=== PATIENT | female | born 1950 | race Caucasian/White ===

== ENCOUNTER → 2017-12-15 09:28 | Outpatient (CLI) | payer MEDICARE, BC, SELFPAY ==
[2017-12-15 13:28] LABS: ALT 36 U/L (12-78); AST 29 U/L (15-37); Albumin 4.1 g/dL (3.4-5.0); Alkaline Phosphatase 64 U/L (46-116); Anion Gap 9.1 mmol/L (3-11); BUN 22 mg/dL (7-18); CO2 28.9 mmol/L (21.0-32.0); Chloride 104 mmol/L (98-107); Cholesterol 217 mg/dL (50-200); Glucose 90 mg/dL (70-100); HDL Cholesterol 64 mg/dL (40-60); LDL CHOLESTEROL 150 mg/dL (<100); Potassium 4.2 mmol/L (3.5-5.1); Sodium 142 mmol/L (136-145); Total Protein 7.4 g/dL (6.4-8.2); Triglyceride 77 mg/dL (30-150)
== END ==
DX: E78.5 Hyperlipidemia, unspecified (principal); D12.6 Benign neoplasm of colon, unspecified; R63.8 Other symptoms and signs concerning food and fluid intake
CPT/HCPCS: 36415; 80053; 80061; 83721

== ENCOUNTER → 2017-12-18 03:14 | Outpatient (CLI) | payer MEDICARE, BC, SELFPAY ==
--- NOTE | 2017-12-18 15:01 | DI.REPORT_ITS ---
SYMPTOMS/DIAGNOSIS: SCREENING, Z12.31 BILATERAL SCREENING MAMMOGRAM: Mammograms were interpreted according to the usual protocol including computer analysis with CAD system, tomosynthesis and C view imaging. Comparison is made with exams from 2011 through 2016. The breasts are composed of scattered fibroglandular densities, breast density category B. No suspicious masses or suspicious microcalcifications are seen. There has been no significant change. IMPRESSION: Category 1B, negative mammogram. Routine screening is recommended. [facility] ASSESSMENT OF FINDINGS: Negative. Category 1. Patient will receive a letter notifying them of these results. BI-RADS category B. There are scattered areas of fibroglandular density.
== END ==
DX: Z12.31 Encounter for screening mammogram for malignant neoplasm of breast (principal)
CPT/HCPCS: 77063; 77067

== ENCOUNTER 2018-11-29 01:06 | Outpatient (CLI) | payer MEDICARE, BC, SELFPAY ==
[2018-11-29 11:32] LABS: ALT 27 U/L (12-78); AST 21 U/L (15-37); Alkaline Phosphatase 57 U/L (46-116); Anion Gap 10.4 mmol/L (3-11); BUN 20 mg/dL (7-18); Bilirubin, Total 1.2 mg/dL (0.2-1.0); CO2 27.6 mmol/L (21.0-32.0); CREATININE 0.72 mg/dL (0.55-1.02); Calcium 9.1 mg/dL (8.5-10.1); Calculated LDL 132 mg/dL; Chloride 102 mmol/L (98-107); Cholesterol 209 mg/dL (50-200); Glucose 93 mg/dL (70-100); HDL Cholesterol 56 mg/dL (40-60); Potassium 4.3 mmol/L (3.5-5.1); Sodium 140 mmol/L (136-145); Total Protein 7.2 g/dL (6.4-8.2); Triglyceride 106 mg/dL (30-150)
== END 2018-11-29 01:26 ==
DX: D12.6 Benign neoplasm of colon, unspecified (principal); K21.9 Gastro-esophageal reflux disease without esophagitis; M79.602 Pain in left arm; R63.8 Other symptoms and signs concerning food and fluid intake; E78.5 Hyperlipidemia, unspecified
CPT/HCPCS: 36415; 80053; 80061; 83721

== ENCOUNTER 2019-12-19 09:15 | Outpatient (CLI) | payer MEDICARE, BC, SELFPAY ==
[2019-12-19 12:36] LABS: ALT 43 U/L (14-59); AST 28 U/L (15-37); Albumin 4.1 g/dL (3.4-5.0); Alkaline Phosphatase 52 U/L (46-116); Anion Gap 9.6 mmol/L (3-11); BUN 20 mg/dL (7-18); Bilirubin, Total 1.1 mg/dL (0.2-1.0); CO2 28.4 mmol/L (21.0-32.0); CREATININE 0.76 mg/dL (0.55-1.02); Calcium 9.3 mg/dL (8.5-10.1); Calculated LDL 132 mg/dL (<100); Chloride 104 mmol/L (98-107); Cholesterol 207 mg/dL (<200); Glucose 96 mg/dL (74-106); HDL Cholesterol 54 mg/dL (40-60); Sodium 142 mmol/L (136-145); Total Protein 7.3 g/dL (6.4-8.2); Triglyceride 109 mg/dL (<150)
== END 2019-12-19 09:35 ==
DX: I10 Essential (primary) hypertension (principal)
CPT/HCPCS: 36415; 80053; 80061

== ENCOUNTER 2020-01-04 04:33 | Outpatient (CLI) | payer MEDICARE, BC, SELFPAY ==
--- NOTE | 2020-01-04 11:50 | DI.MAMMO_ITS ---
EXAM: MG MAMMO SCREENING CLINICAL HISTORY: screening, Z12.39 TECHNIQUE: Bilateral full field digital CC and MLO mammographic images were obtained with 3D tomosyn thesis and utilizing computer aided detection (CAD). COMPARISON: Available for comparison. FINDINGS: Masses/Architectural Distortion: There are stable scattered fibroglandular densities. Microcalcifications: No suspicious pleomorphic-type are seen. Skin Thickening/Nipple Retraction: None. IMPRESSION: 1. No significant interval change with no specific features of malignancy noted. 2. Unless there is more urgent need, screening mammography is recommended, as per [employer] guidelines. BI-RADS Category 1 - Negative Breast Density - Category B - Scattered areas of fibroglandular density A negative radiographic report should not delay biopsy if a dominant or clinically suspicious mass is present. Up to ten percent of cancers are not identified on mammography. A negative report may reinforce clinical impression. Adenosis and dense breasts may obscure an underlying neoplasm. False positive reports average 6 to 10%. Patient will receive a letter notifying them of these results.
== END 2020-01-04 04:53 ==
DX: Z12.31 Encounter for screening mammogram for malignant neoplasm of breast (principal); R92.2 Inconclusive mammogram
CPT/HCPCS: 77063; 77067

== ENCOUNTER 2021-03-07 08:10 | Emergency (ER) | payer MEDICARE, BC, SELFPAY ==
[2021-03-07] VITALS (37 sets, daily range): BP systolic 125–162; BP diastolic 56–126; PULSE 70–104; RESP 11–35; TEMP 36.8–37.1; O2SAT 93–98
--- NOTE | 2021-03-07 08:17 | ED.GENADUL_ITS ---
Discharge Plan Discharge Details Primary Care Provider: Marie Bethea ED Provider: Linda Souza Home Meds and New Rx's Prescriptions: No Action Systane Complete 0.6 % drops 1 drp OP DAILY PRNRF: 0 aspirin 81 MG tablet,delayed release (DR/EC) 81 mg PO DAILY RF: 0 ttuyjko-bghmiwxmw-syod 1 EACH tablet 1 ea PO DAILY RF: 0 naproxen sodium 220 MG tablet 220 mg PO DAILY RF: 0 multivitamin 1 EACH capsule 1 ea PO DAILY RF: 0 omega-3 fatty acids-fish oil [Fish Oil] 1 EACH capsule 1 ea PO DAILY RF: 0 red yeast rice 600 MG tablet 1,200 mg PO DAILY RF: 0 glucosamine ric-ikviblzsph-skr 1 EACH tablet 1 ea PO DAILY RF: 0 coenzyme Q10 [Co Q-10] 100 MG capsule 1 cap PO DAILY RF: 0 HPI General Date/Time Provider Initiated Documentation: 03/07/21 08:17 . Related Data Home Medications Medication Instructions Recorded Confirmed aspirin 81 mg PO DAILY tab-cap 08/16/13 10/27/18 drwmpbn-sqcigpjeb-avar 1 ea PO DAILY 08/16/13 10/27/18 glucosamine jlp-njzjrlxwzd-nhp 1 ea PO DAILY 08/16/13 10/27/18 multivitamin 1 ea PO DAILY 08/16/13 10/27/18 naproxen sodium 220 mg PO DAILY 08/16/13 10/27/18 omega-3 fatty acids-fish oil [Fish 1 ea PO DAILY 08/16/13 10/27/18 Oil] red yeast rice 1,200 mg PO DAILY 08/16/13 10/27/18 coenzyme Q10 [Co Q-10] 1 cap PO DAILY 08/17/13 10/27/18 propylene glycol 0.6 % eye drops 1 drp OP DAILY PRN 12/19/19 Allergies Allergy/AdvReac Type Severity Reaction Status Date / Time No Known Allergies Allergy Verified 12/19/19 08:02 FOR[facility]LY [facility], [facility] Medical History Gastroesophageal reflux disease without esophagitis (12/15/17) Pain in anterior left upper extremity (12/15/17) Tubular adenoma of colon (02/27/16) White coat hypertension White coat syndrome with hypertension (08/17/13) Surgical History Arthroscopy, Shoulder (~2002) RIGHT Colonoscopy - IV Sedation (02/27/16) Status post arthroscopy of shoulder Family History (Updated 12/19/19 @ 16:33 by Emily Castillo) Father , 82 's Essential hypertension Stroke Diabetes Sister Diabetes Grandmother Stroke Social History (Updated 12/19/19 @ 16:32 by Emily Castillo) Smoking/Tobacco Use Status: Never Smoking risk assessment performed?: Yes Alcohol Intake: never Drug use: Never Counseling given: No Counseling provided: none Caregiver/Support person: No Household members: spouse Housing: house Do you think of yourself as: straight/heterosexual Current gender identity: female What is your relationship status?: How often do you talk on the phone with friends or family?: three or more times per week How often do you get together with friends or relatives?: three or more times per week How often do you attend anabaptism or rastafari services?: 4 or more times per year Do you belong to any clubs or organized social groups?: no Panel score (0-1 are the most socially isolated patients): 3 What type of physical activity do you participate in: walking Duration: < 15 minutes/day Seatbelt use: always Helmet use: Yes Helmet use: always
--- NOTE | 2021-03-07 08:45 | DI.RAD_ITS ---
Exam(s) XR PORTABLE CHEST AP EXAM: XR PORTABLE CHEST AP CLINICAL HISTORY: shortness of breath, covid +. TECHNIQUE: 2D digital imaging was performed. COMPARISON: CR CHEST 2 VIEWS PA,LAT from 05/10/2008 FINDINGS: Heart size is upper normal. The mediastinum is not widened. Lungs are clear. No infiltrates nor obvious pleural effusions. IMPRESSION: No acute pulmonary findings on this single AP portable view of the chest. DATA REPOSITORY: RADIATION DOSE DELIVERED: All CT scans at this facility use at least one of these dose optimization techniques: automated exposure control; mA and/or kV adjustment per patient size (includes targeted e xams where dose is matched to clinical indication); or iterative reconstruction.
--- NOTE | 2021-03-07 08:45 | RT.EKG_ITS ---
APPROVED REPORT Exam: Resting ECG Reason for Exam: shortness of breath Patient Location: E HR:86 bpm ECG Measurements Heart Rate 86 AXIS DE 169 P 78 QRSd 83 QRS 26 QT 362 T 32 QTc 434 Conclusion Sinus rhythm...normal P axis, V-rate 60- 99 Probable left atrial enlargement...P >50mS, <-0.10mV V1
--- NOTE | 2021-03-07 08:59 | NUR.NOTE ---
Nursing Note: [facility], Teresa, stated that the patient was tested at [facility] on Mar.04 and was positive. Ange Pleitez
[2021-03-07 10:06] LABS: Abs Immature Grans 0.02 10^3/uL (0.0-0.06); Absolute Basophil Count 0.02 10^3/uL (0.0-0.2); Absolute Lymphocyte Count 1.19 10^3/uL (1.2-3.4); Absolute Monocyte Count 1.81 10^3/uL (0.1-0.8); Absolute Neutrophil Count 1.43 10^3/uL (1.2-6.7); Basophils % 0.4; HCT 46.4 % (36.0-46.0); HGB 15.6 g/dL (11.2-15.7); Immature Grans % 0.4; Lymphocytes % 26.6; MCH 31.4 pg (27.0-33.0); MCHC 33.6 % (32.0-36.0); MCV 93.4 fL (80-95); Monocytes % 40.5; Neutrophils % 32.1; Nucleated RBC 0 %; Platelet Count 193 10^3/uL (130-400); RBC 4.97 10^6/uL (3.93-5.22); RDW-SD 41.2 fL; WBC 4.47 10^3/uL (4.4-10.8)
[2021-03-07 10:24] LABS: Diff Comment Diff Reviewed; RBC Morphology Normal
[2021-03-07 10:26] LABS: ALT 38 U/L (14-59); AST 32 U/L (15-37); Albumin 3.7 g/dL (3.4-5.0); Alkaline Phosphatase 60 U/L (46-116); Anion Gap 6.4 mmol/L (3-11); BUN 12 mg/dL (7-18); Bilirubin, Total 0.7 mg/dL (0.2-1.0); CO2 30.6 mmol/L (21.0-32.0); CREATININE 0.8 mg/dL (0.55-1.02); Calcium 9.1 mg/dL (8.5-10.1); Chloride 101 mmol/L (98-107); Glucose 100 mg/dL (74-106); NT-proBNP 28 pg/mL (<300); Potassium 3.6 mmol/L (3.5-5.1); Sodium 138 mmol/L (136-145); Total Protein 7.7 g/dL (6.4-8.2)
[2021-03-07 10:29] LABS: Troponin I < 0.05 ng/mL (<0.06)
--- NOTE | 2021-03-07 10:35 | ED.GENADUL_ITS ---
Discharge Plan Disposition Patient Disposition: HOME Condition: Stable Discharge Details Clinical Impression: COVID-19 Primary Care Provider: Marie Bethea ED Provider: Niru Carver Home Meds and New Rx's Prescriptions: Continued Systane Complete 0.6 % drops 1 drp OP DAILY PRNRF: 0 aspirin 81 MG tablet,delayed release (DR/EC) 81 mg PO DAILY RF: 0 cxqjteo-sgbrwaxds-ckdb 1 EACH tablet 1 ea PO DAILY RF: 0 naproxen sodium 220 MG tablet 220 mg PO DAILY RF: 0 multivitamin 1 EACH capsule 1 ea PO DAILY RF: 0 omega-3 fatty acids-fish oil [Fish Oil] 1 EACH capsule 1 ea PO DAILY RF: 0 red yeast rice 600 MG tablet 1,200 mg PO DAILY RF: 0 glucosamine eco-zumtfxytir-qpb 1 EACH tablet 1 ea PO DAILY RF: 0 coenzyme Q10 [Co Q-10] 100 MG capsule 1 cap PO DAILY RF: 0 Discharge Instructions Instructions: Viral Syndrome (ED) Additional Instructions: Stay hydrated with regular meals Continue to isolate Ibuprofen and Tylenol as needed for discomfort Use your Pulsoxymeter, if your oxygen dips below 90% you should return to the emergency room for reassessment When you higher pulse oximeterfor several minutes as sometimes they can take a while to acclimate You received monoclonal antibody infusion, if you begin to have any signs or symptoms of reaction, please return for reassessment and take Benadryl 25 to 50 mg to start Your lab tests look great today we do not have any evidence of pneumonia on your x-ray Referrals: Marie Bethea, [facility] [Primary Care Provider] - Discharge Data Discharge Date/Time-TO BE ENTERED AT DEPARTURE: 03/07/21 11:45 Medical Decision Making Patient appears well, her ambulatory saturations are to limit 95% on room air Given Pulsoximeter, minute given monoclonal antibody, diagnostic labs reassuring We discussed risk factors associated with monoclonal antibody administration and patient Chest x-ray no infiltrate, this patient is quite stable for discharge home, she instructed heavy demeanor and her is available. There are She given very low threshold to return should she have new or worsening complaints at this time she is discharged home in stable condition with stable vitals Medical Records Medical records reviewed: Yes I reviewed the patient's medical records. Lab Data Lab results reviewed: Yes I reviewed the patient's lab results. HPI General Mode of arrival: ambulatory . Date/Time Provider Initiated Documentation: 03/07/21 08:17 . Limitations to Documentation: no limitations . Information obtained by: patient . HPI Narrative: This very pleasant 70-year-old female with recent diagnosis of COVID-19 on Thursday, presents with reports of dyspnea for the past several days. Denies any chest pain associated. Denies any nausea or vomiting. Denies any fever or chills. Was exposed to colostrum. Denies history of asthma or COPD. Does not smoke tobacco. Fully vaccinated for COVID-19 reportedly. Denies any calf pain or swelling, recent flights, surgeries, long drives. States her symptoms are gradual, otherwise she is feeling well. She states that she is quite anxious because her sister of COVID-19 although she is a jail and unsure as to whether or not she is fully vaccinated at this time. Patient states she feels as though she get around safely at home. Denies prior history of coagulopathy. Related Data Home Medications Medication Instructions Recorded Confirmed aspirin 81 mg PO DAILY tab-cap 08/16/13 03/07/21 gafulxy-adpbysmkg-praq 1 ea PO DAILY 08/16/13 03/07/21 glucosamine meu-khgjrdvuoo-kur 1 ea PO DAILY 08/16/13 03/07/21 multivitamin 1 ea PO DAILY 08/16/13 03/07/21 naproxen sodium 220 mg PO DAILY 08/16/13 03/07/21 omega-3 fatty acids-fish oil [Fish 1 ea PO DAILY 08/16/13 03/07/21 Oil] red yeast rice 1,200 mg PO DAILY 08/16/13 03/07/21 coenzyme Q10 [Co Q-10] 1 cap PO DAILY 08/17/13 03/07/21 propylene glycol 0.6 % eye drops 1 drp OP DAILY PRN 12/19/19 03/07/21 Allergies Allergy/AdvReac Type Severity Reaction Status Date / Time No Known Allergies Allergy Verified 03/07/21 08:26 General Stated Complaint: SOB CORNELIO: 3 Review of Systems All systems reviewed & are unremarkable except as noted in HPI and below FOR[facility]LY [facility] Medical History (Updated 03/07/21 @ 10:37 by ROGER Dickens) Gastroesophageal reflux disease without esophagitis (12/15/17) Pain in anterior left upper extremity (12/15/17) Tubular adenoma of colon (02/27/16) White coat hypertension White coat syndrome with hypertension (08/17/13) Surgical History Arthroscopy, Shoulder (~2002) RIGHT Colonoscopy - IV Sedation (02/27/16) Status post arthroscopy of shoulder Family History (Updated 12/19/19 @ 16:33 by Emily Castillo) Father , 82 's Essential hypertension Stroke Diabetes Sister Diabetes Grandmother Stroke Social History (Updated 12/19/19 @ 16:32 by Emily Castillo) Smoking/Tobacco Use Status: Never Smoking risk assessment performed?: Yes Alcohol Intake: never Drug use: Never Counseling given: No Counseling provided: none Caregiver/Support person: No Household members: spouse Housing: house Do you think of yourself as: straight/heterosexual Current gender identity: female What is your relationship status?: How often do you talk on the phone with friends or family?: three or more times per week How often do you get together with friends or relatives?: three or more times per week How often do you attend restorationism or holiness services?: 4 or more times per year Do you belong to any clubs or organized social groups?: no Panel score (0-1 are the most socially isolated patients): 3 What type of physical activity do you participate in: walking Duration: < 15 minutes/day Seatbelt use: always Helmet use: Yes Helmet use: always Exam Const General: cooperative, comfortable and no acute distress HENMT Mouth: oral mucosae normal Eyes Pupils: PERRL Resp Effort & Inspection: normal respiratory effort Auscultation: clear to auscultation bilaterally Cardio Rate: regular rate Rhythm: regular rhythm GI Other: Nontender Skin General skin exam: no rashes or lesions noted Neuro General: patient alert and patient oriented x3 Psych Appearance: grossly normal Course Vital Signs Vital signs: Vital Signs Temperature 37.1 C 03/07/21 08:21 Pulse 88 03/07/21 08:21 Respiratory Rate 16 03/07/21 08:21 Blood Pressure 159/90 H 03/07/21 08:21 Pulse Oximetry 96 03/07/21 08:21 Temperature 36.8 C 03/07/21 10:07 Temperature Source Skin 03/07/21 10:07 Pulse 84 03/07/21 10:31 Pulse 80 03/07/21 10:31 Respiratory Rate 23 03/07/21 10:31 Respiratory Effort 03/07/21 10:15 Respiratory Depth Normal 03/07/21 10:15 Respiratory Pattern Normal 03/07/21 10:15 Blood Pressure 160/98 H 03/07/21 10:31 Blood Pressure Mean 109 03/07/21 10:31 Blood Pressure Position Sitting 03/07/21 10:07 Pulse Oximetry 96 03/07/21 10:31 Oxygen Delivery Method Room Air 03/07/21 10:07 Oxygen Flow Rate 0 03/07/21 10:07 Pain Level 0 03/07/21 10:07 Lab/Test Results Lab/Test Results: Laboratory Tests Range/Units 03/07/21 03/07/21 09:50 09:50 WBC (4.4-10.8) 10^3/uL 4.47 RBC (3.93-5.22) 10^6/uL 4.97 Hgb (11.2-15.7) g/dL 15.6 Hct (36.0-46.0) % 46.4 H MCV (80-95) fL 93.4 MCH (27.0-33.0) pg 31.4 MCHC (32.0-36.0) % 33.6 RDW (11.7-14.6) % 12.0 Plt Count (130-400) 10^3/uL 193 MPV (8.0-11.0) fL 10.0 Immature Gran % 0.4 Neutrophils % 32.1 Lymphocytes % 26.6 Monocytes % 40.5 Eosinophils % 0.0 Basophils % 0.4 Nucleated RBC % % 0 Absolute Neutrophils (1.2-6.7) 10^3/uL 1.43 Absolute Lymphocytes (1.2-3.4) 10^3/uL 1.19 L Absolute Monocytes (0.1-0.8) 10^3/uL 1.81 H Absolute Eosinophils (0.0-0.7) 10^3/uL 0.00 Absolute Basophils (0.0-0.2) 10^3/uL 0.02 RBC Morphology Normal Sodium (136-145) mmol/L 138 Potassium (3.5-5.1) mmol/L 3.6 Chloride (98-107) mmol/L 101 Carbon Dioxide (21.0-32.0) mmol/L 30.6 Anion Gap (3-11) mmol/L 6.4 BUN (7-18) mg/dL 12 Creatinine (0.55-1.02) mg/dL 0.8 Estimated GFR/1.73 m2 (mL/min/1.73m2) >= 60.00 Glucose (74-106) mg/dL 100 Calcium (8.5-10.1) mg/dL 9.1 Total Bilirubin (0.2-1.0) mg/dL 0.7 AST (15-37) U/L 32 ALT (14-59) U/L 38 Alkaline Phosphatase (46-116) U/L 60 Troponin I (<0.06) ng/mL < 0.05 NT-Pro-B Natriuret Pep (<300) pg/mL 28 Total Protein (6.4-8.2) g/dL 7.7 Albumin (3.4-5.0) g/dL 3.7
== END 2021-03-07 11:45 | disposition home or self-care (01) ==
PROVIDERS: Emergency Provider Physician Assistant
DX: U07.1 COVID-19 (principal); R06.02 Shortness of breath
CPT/HCPCS: 36415; 80053; 93005; 96365; 99284; 71045; 83880; 84484; 85025; 93010

== ENCOUNTER 2021-04-26 10:53 | Emergency (ER) | payer MEDICARE, BC, SELFPAY ==
[2021-04-26 10:57] VITALS: BP 158/88; PULSE 81; RESP 18; TEMP 36.4; O2SAT 97
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
--- NOTE | 2021-04-26 11:11 | W.ED.GENAD ---
Discharge Plan Disposition Patient Disposition: HOME Condition: Stable Discharge Details Clinical Impression: Acute pain of right knee, Injury of medial collateral ligament (MCL) of knee Primary Care Provider: Marie Bethea ED Provider: Meredith Hart Home Meds and New Rx's Prescriptions: Continued Systane Complete 0.6 % drops 1 drp OP DAILY PRNRF: 0 aspirin 81 MG tablet,delayed release (DR/EC) 81 mg PO DAILY RF: 0 ptbvehm-czkchznyf-hbaf 1 EACH tablet 1 ea PO DAILY RF: 0 naproxen sodium 220 MG tablet 220 mg PO DAILY RF: 0 multivitamin 1 EACH capsule 1 ea PO DAILY RF: 0 omega-3 fatty acids-fish oil [Fish Oil] 1 EACH capsule 1 ea PO DAILY RF: 0 red yeast rice 600 MG tablet 1,200 mg PO DAILY RF: 0 glucosamine iyj-qptcwaozjk-[id number] 1 EACH tablet 1 ea PO DAILY RF: 0 coenzyme Q10 [Co Q-10] 100 MG capsule 1 cap PO DAILY RF: 0 Discharge Instructions Instructions: Swollen Knee Joint (ED), Knee Pain (ED) Additional Instructions: Your imaging is reassuring here today. Please encourage rest, ice, elevation. Tylenol and ibuprofen as needed for discomfort. You are having difficulty with ambulation, please continue with the knee immobilizer and crutches. Please take great care to not slip while using the crutches and try and stay inside as much as possible. You may take the brace off when you are not ambulating and work on her flexion and extension to help prevent limited range of motion. I have referred you to orthopedics. Please call Thursday morning to schedule appointment, number listed below. If you develop increased pain, fever/chills, or other new/worsening symptom please seek care urgentlyonce again. Referrals: Marie Bethea NP [Primary Care Provider] - Braydon Martines MD [ [facility] STAFF PHYSICIAN] - Discharge Data Discharge Date/Time-TO BE ENTERED AT DEPARTURE: 04/26/21 16:00 Medical Decision Making Patient is a pleasant 70-year-old female presenting today, via EMS, with chief complaint of right knee pain. She reports the pain began initially in over she suffered a rotational injury going down the stairs. States that this happened a few times throughout the course the day and that she has some medial joint line tenderness. Since then, has been having chronic pain, again particularly with rotational events. States that she worked with physical therapy yesterday for this issue and that last night she suffered another event COVID increased pain. States the pain is now so severe she having difficulty with weightbearing. Again, this came on worse after rotational event going up the stairs and taking a corner. Pain continues to feel on the medial aspect. Patient not been seen by her primary care, has not had any imaging as of yet. She denies any fevers or chills. No direct fall on the knee. Denies any numbness or tingling. On exam, patient appears nontoxic. Intact distal pulses. Sensation is intact. Full range of motion at the ankle. Full range of motion of the knee. Ligamentously intact with varus and valgus stress testing as well as anterior posterior drawer testing. However, she does express a large amount of discomfort and does have guarding with valgus stress test. She is tender over the MCL. Negative Sonia's exam. No effusion. No erythema or warmth. No trauma or evidence on exam to suggest knee dislocation. Exam and history is most concerning for MCL sprain. Her exam was slightly limited secondary to guarding as far as instability of this ligament. She had a multitude of injuries, will obtain x-ray to evaluate for any potential bony pathology. X-ray reviewed by myself, I do not know any significant bony abnormalities. The medial joint line might be slightly narrowed compared to the lateral aspect but no evidence to suggest fracture. Discussed these findings with the patient. She has received Tylenol and ibuprofen for discomfort. She has no pain when she is at rest. We will fit with a hinged knee brace and try ambulating patient. Patient attempted to ambulate with a hinged knee brace and was not able to. Been attempted with knee immobilizer and still had the same difficulty as patient was not able to tolerate any type of weightbearing activity. Concern for potential bony abnormality that may not have been picked up on the x-ray based on the severity of discomfort and difficulty with ambulation and weightbearing. We will move forward with a CT for further evaluation. FINDINGS: Bones/joints: There is a small joint effusion. Minimal DJD is present with tiny osteophytes on the patella, medial femoral condyle and tibial plateau. No fracture or other acute bony abnormalities are seen. Soft tissues: Normal. IMPRESSION: 1. Small joint effusion. 2. Mild DJD. 3. No acute bony abnormality. Discussed these findings with patient. Again, unclear was causing the severity of her discomfort. Her exam is most consistent with MCL injury. We will continue with a knee immobilizer to help with pain and start on crutches. I am very hesitant regarding the crutches based on the weather. However, she really struggled with the walker. She will stay inside as much as possible and ensure that she has been helper get from the house to the car when needed. Encourage rest, ice, elevation. Tylenol and ibuprofen as needed for discomfort. Again, the patient did not have any pain when at rest then hesitant to give her any stronger pain medication as this will likely sedate her when she is at rest. Return precautions were discussed. All of her questions and concerns were addressed and she is in agreement this plan. HPI General Mode of arrival: wheelchair. Date/Time Provider Initiated Documentation: 04/26/21 10:54. Limitations to Documentation: no limitations. Information obtained by: patient, family () and RN notes reviewed. History of Present Illness 70 year old F presents to the emergency department with the chief complaint of rightknee pain, described as severe, Quality is described as aching, and is localized to the right and lower extremity. Patient reports no radiation. Patient started experiencing this month(s) (spike in pain last night and today) and it has been constant. Immobilization improves symptom(s), Movement worsens symptoms . Patient notes no other symptoms.. Patient did receive the following treatments prior to arrival, none Related Data Home Medications Medication Instructions Recorded Confirmed aspirin 81 mg PO DAILY tab-cap 08/16/13 04/26/21 empmgau-mmkihmjhp-ynfp 1 ea PO DAILY 08/16/13 04/26/21 glucosamine pdy-zfkdtyddix-nss 1 ea PO DAILY 08/16/13 04/26/21 multivitamin 1 ea PO DAILY 08/16/13 04/26/21 naproxen sodium 220 mg PO DAILY 08/16/13 04/26/21 omega-3 fatty acids-fish oil [Fish 1 ea PO DAILY 08/16/13 04/26/21 Oil] red yeast rice 1,200 mg PO DAILY 08/16/13 04/26/21 coenzyme Q10 [Co Q-10] 1 cap PO DAILY 08/17/13 04/26/21 propylene glycol 0.6 % eye drops 1 drp OP DAILY PRN 12/19/19 04/26/21 Allergies Allergy/AdvReac Type Severity Reaction Status Date / Time No Known Allergies Allergy Verified 04/26/21 11:01 General Stated Complaint: Orthopedic CORNELIO: 4 Review of Systems Constitutional Constitutional: Reports as per HPI, Denies chills, Denies fever(s), Denies headache(s) and Denies weakness ENT Ears, Nose, Mouth, and Throat: Denies headache(s) Cardiovascular Cardiovascular: Reports as per HPI Respiratory Respiratory: Reports as per HPI and Denies cough Musculoskeletal Musculoskeletal: Reports as per HPI and Denies tingling Integumentary/Breasts Skin/Breast: Reports as per HPI, Denies rash and Denies wounds Neurologic Neurologic: Reports as per HPI, Denies headache(s), Denies tingling, Denies paresthesias and Denies weakness PFSH All Active Problems (Updated 04/26/21 @ 15:27 by ROGER Sauceda) COVID-19 (Acute) Acute pain of right knee (Acute) Injury of medial collateral ligament (MCL) of knee (Acute) Status post arthroscopy of shoulder (Chronic) Gastroesophageal reflux disease without esophagitis (Chronic 12/15/17) Pain in anterior left upper extremity (Chronic 12/15/17) Tubular adenoma of colon (Acute 02/27/16) White coat syndrome with hypertension (Acute 08/17/13) Medical History (Updated 04/26/21 @ 15:27 by ROGER Sauceda) White coat hypertension Surgical History Arthroscopy, Shoulder (~2002) RIGHT Colonoscopy - IV Sedation (02/27/16) Family History (Updated 12/19/19 @ 16:33 by Emily Castillo) Father , 82 's Essential hypertension Stroke Diabetes Sister Diabetes Grandmother Stroke Social History (Updated 12/19/19 @ 16:32 by Emily Castillo) Smoking/Tobacco Use Status: Never Smoking risk assessment performed?: Yes Alcohol Intake: never Drug use: Never Substance use type: does not use Counseling given: No Counseling provided: none Caregiver/Support person: No Household members: spouse Housing: house Do you think of yourself as: straight/heterosexual Current gender identity: female What is your relationship status?: How often do you talk on the phone with friends or family?: three or more times per week How often do you get together with friends or relatives?: three or more times per week How often do you attend jehovah's witness or caodaism services?: 4 or more times per year Do you belong to any clubs or organized social groups?: no Panel score (0-1 are the most socially isolated patients): 3 What type of physical activity do you participate in: walking Duration: < 15 minutes/day Seatbelt use: always Helmet use: Yes Helmet use: always Do you feel safe at home: Yes Do you feel safe in your relationship?: Yes Exam Const General: cooperative, healthy appearing, comfortable, no acute distress, well developed and well groomed Nutritional Appearance: average body habitus and well nourished Orientation: alert and awake Resp Effort & Inspection: normal respiratory effort, able to speak in complete sentences and no respiratory distress Cardio Rate: regular rate Rhythm: regular rhythm Skin General skin exam: no rashes or lesions noted Lesions: no lesions Rashes: no rashes Trauma: no lacerations or abrasions Neuro General: patient alert and patient awake Cognition: normal cognition Speech: speech normal Gait: gait abnormal (unable to bear weight) Motor: muscle tone normal throughout Sensory Exam: no sensory deficits noted Extrem Right lower extremity: normal to inspection, full ROM, normal capillary refill, no joint enlargement, knee Details: normal to inspection, tenderness Location: of the medial joint line (along length of MCL), normal ROM, knee ligament exam normal Details: anterior drawer test normal, posterior drawer test normal and varus stress test normal; valgus stress test abnormal (guarding and pain with this test) and no pain with axial loading and Sonia's Test Details: negative medially and laterally; no swelling, no lacerations, no ecchymosis, no deformity and no unusual warmth, lower leg Details: normal to inspection and no edema; no tenderness and no palpable cords, ankle Details: normal to inspection and normal ROM; no tenderness and foot Details: normal capillary refill and vascular exam Details: dorsalis pedis pulse present and posterior tibial pulse present Psych Appearance: grossly normal and well kempt Mental Status: mental status grossly normal Speech and Movement: speech and movement normal Course Vital Signs Vital signs: Vital Signs Temperature 36.4 C L 04/26/21 10:57 Pulse 81 04/26/21 10:57 Respiratory Rate 18 04/26/21 10:57 Blood Pressure 158/88 H 04/26/21 10:57 Pulse Oximetry 97 04/26/21 10:57 Temperature 36.4 C L 04/26/21 10:57 Pulse 81 04/26/21 10:57 Respiratory Rate 18 04/26/21 10:57 Respiratory Effort Non-Labored 04/26/21 11:02 Blood Pressure 158/88 H 04/26/21 10:57 Blood Pressure Position Sitting 04/26/21 10:57 Pulse Oximetry 97 04/26/21 10:57 Oxygen Delivery Method Room Air 04/26/21 10:57 Oxygen Flow Rate 0 04/26/21 10:57
[2021-04-26] MEDS: Acetaminophen 325 MG TAB 650 MG PO (11:24)
[2021-04-26] MEDS: Ibuprofen 600 MG TAB PO (11:24)
--- NOTE | 2021-04-26 12:43 | DI.VRAD_ITS ---
PROCEDURE INFORMATION: Exam: XR Left Knee Exam date and time: 04/26/2021 11:13 AM Age: 70 years old Clinical indication: Other: Right knee pain, medial worse after rotational jaida TECHNIQUE: Imaging protocol: XR Left knee. Views: 4 or more views. COMPARISON: No relevant prior studies available. FINDINGS: Bones/joints: No fracture or other acute abnormalities are seen. Mild degenerative changes are present with small osteophytes. Soft tissues: Normal. IMPRESSION: Mild DJD. No acute abnormality. Dictated and Authenticated by: Georgi Dixon MD. Ordering:DEEJAY Harper MD
--- NOTE | 2021-04-26 13:00 | DI.CT_ITS ---
Exam(s) CT LOWER EXTREMITY RT WO EXAM: CT LOWER EXTREMITY RT WO CLINICAL HISTORY: medial knee pain, unable to weight bear with brace. TECHNIQUE: Imaging Protocol: Axial computed tomography images with coronal and sagittal reformatted images were created and reviewed. CONTRAST MATERIAL: Intravenous: Omnipaque 350 Contrast volume:structured data in ml Contrast route:I V - Oral: yes / no COMPARISON: CR,XR XR KNEE RT 4V AP,LAT,COSTA,PAT from 04/26/2021 CR,XR XR KNEE RT 4V AP,LAT,COSTA,PAT from 04/26/2021 FINDINGS: Effusion: There is a small joint effusion. Marrow: No acute fracture lines evident. Tibial plateau and tibial spines are intact. Mild degenera tive changes evident in the medial and patellofemoral compartments. No fractures in the fibular head and neck. IMPRESSION: No fractures evident. Mild degenerative changes. Small joint effusion. If clinically indicated follow-up MRI can be performed for added sensitivity a nd specificity. RADIATION DOSE DELIVERED: 230.82mGy.cm Total DLP DATA REPOSITORY: All CT scans at this facility are submitted to the National Radiology Data Registry (NRDR) Dose Index Registry (DIR) with the [employer] ([employer]). RADIATION OPTIMIZATION: All CT scans at this facility use at least one of these dose optimization te chniques: automated exposure control; mA and/or kV adjustment per patient size (includes targeted exa ms where dose is matched to clinical indication); or iterative reconstruction.
--- NOTE | 2021-04-26 14:34 | DI.VRAD_ITS ---
PROCEDURE INFORMATION: Exam: CT Right Lower Extremity Without Contrast, Knee Exam date and time: 04/26/2021 1:04 PM Age: 70 years old Clinical indication: Other: Medial knee pain, unable to weight bear with brace TECHNIQUE: Imaging protocol: CT of the Right lower extremity without contrast was performed. Exam focused on the knee. Radiation optimization: All CT scans at this facility use at least one of these dose optimization techniques: automated exposure control; mA and/or kV adjustment per patient size (includes targeted exams where dose is matched to clinical indication); or iterative reconstruction. COMPARISON: CR XR KNEE RT 4V AP,LAT,COSTA,PAT 04/26/2021 11:39 AM FINDINGS: Bones/joints: There is a small joint effusion. Minimal DJD is present with tiny osteophytes on the patella, medial femoral condyle and tibial plateau. No fracture or other acute bony abnormalities are seen. Soft tissues: Normal. IMPRESSION: 1. Small joint effusion. 2. Mild DJD. 3. No acute bony abnormality. Dictated and Authenticated by: Georgi Dixon MD. Ordering:DEEJAY Harper MD
== END 2021-04-26 16:00 | disposition home or self-care (01) ==
PROVIDERS: Emergency Provider Physician Assistant
DX: S89.82XA Other specified injuries of left lower leg, initial encounter (principal); X58.XXXA Exposure to other specified factors, initial encounter; M25.562 Pain in left knee; M25.462 Effusion, left knee
CPT/HCPCS: 29505; 99285; 73564; 73700; 99284

== ENCOUNTER 2021-05-16 14:44 | Outpatient (CLI) | payer MEDICARE, SELFPAY ==
--- NOTE | 2021-05-16 14:15 | DI.RAD_ITS ---
Exam(s) XR KNEE RT 3V AP,LAT,COSTA EXAM: XR KNEE RT 3V AP,LAT,COSTA CLINICAL HISTORY: pain in knee. TECHNIQUE: 2D digital imaging was performed. COMPARISON: CR,XR XR KNEE RT 4V AP,LAT,COSTA,PAT from 04/26/2021 FINDINGS: BONES: No acute fracture is present. No bony destructive lesion is seen. Enthesophyte is seen at the superior pole of the patella. JOINTS: The knee is normally aligned. No joint effusion is seen. There is mild narrowing of the media l femoral tibial joint space and mild periarticular spurring. SOFT TISSUE: Normal. IMPRESSION: Mild degenerative changes. DATA REPOSITORY: RADIATION DOSE DELIVERED:
== END 2021-05-16 14:45 | disposition home or self-care (01) ==
LOC: DIORS 14:45
PROVIDERS: Visit Provider Physician Assistant Surgical
DX: M25.561 Pain in right knee (principal); M17.11 Unilateral primary osteoarthritis, right knee
CPT/HCPCS: 20610; 73562; 99214; J1040

== ENCOUNTER 2022-05-02 00:23 | Outpatient (CLI) | payer MEDICARE, SELFPAY ==
--- NOTE | 2022-05-02 07:45 | DI.DEXA_ITS ---
Exam(s) XR DEXA BONE DENSITY W/WO PERLITA EXAM: XR DEXA BONE DENSITY W/WO PERLITA CLINICAL HISTORY: screening FOR OSTEOPOROSIS IN POSTMENOPAUSAL WOMAN, Z78.0 TECHNIQUE: HoloFilmm[employer] C densitometer analysis of left hip, lumbar spine and left forearm. COMPARISON: No exams were available for comparison FINDINGS: Lateral view of the thoracic and lumbar spine shows no evidence of compression fractures. Bone mineral density measurements of the lumbar spine correspond to a total T-score of 0.6, in the n ormal range. Bone mineral density measurements of the left hip correspond to a total T-score of 0.3. The femoral neck T-score is -1.2, in the mildly osteopenic range.. The left forearm bone mineral density measurements correspond to a T-score of the distal 3rd of -2.2 , in the osteopenic range.. IMPRESSION: Normal bone mineral density of the lumbar spine. Osteopenia of the forearm and hip.
== END 2022-05-02 00:43 ==
LOC: DI 00:23
PROVIDERS: PCP Nurse Practitioner Family; Visit Provider Nurse Practitioner Family
DX: Z78.0 Asymptomatic menopausal state; M85.88 Other specified disorders of bone density and structure, other site
CPT/HCPCS: 77080

== ENCOUNTER 2022-05-07 03:19 | Outpatient (CLI) | payer MEDICARE, SELFPAY ==
--- NOTE | 2022-05-07 07:48 | DI.MAMMO_ITS ---
Exam(s) MAMMO SCREENING EXAM: MAMMO SCREENING CLINICAL HISTORY: screening,z12.39 TECHNIQUE: Mammograms were interpreted according to the usual protocol including computer analysis w [employer] CAD system, tomosynthesis and C-view imaging. COMPARISON: 2013 through 2019 FINDINGS: The breasts are composed of scattered fibroglandular densities, Breast Density category B. No suspicious masses or suspicious microcalcifications are seen. No skin thickening or abnormal axillary lymph nodes are seen. There has been no significant change from prior exams. IMPRESSION: BI-RADS Category 1, Negative mammogram Yearly screening mammography is recommended. Breast Density - Category B, scattered fibroglandular densities. A negative radiographic report should not delay biopsy if a dominant or clinically suspicious mass is present. Up to ten percent of cancers are not identified on mammography. A negative report may reinforce clinical impression. Adenosis and dense breasts may obscure an underlying neoplasm. False positive reports average 6 to 10%. Patient will receive a letter notifying them of these results.
== END 2022-05-07 03:39 ==
LOC: DI 03:19
PROVIDERS: PCP Nurse Practitioner Family; Visit Provider Nurse Practitioner Family
DX: Z12.31 Encounter for screening mammogram for malignant neoplasm of breast (principal)
CPT/HCPCS: 77063; 77067

== ENCOUNTER 2022-05-07 04:53 | Outpatient (CLI) | payer MEDICARE, SELFPAY ==
[2022-05-07 08:03] LABS: HCT 47.4 % (36.0-46.0); HGB 15.9 g/dL (11.2-15.7); MCHC 33.5 % (32.0-36.0); MCV 92 fL (80-95); MPV 9.9 fL (8.0-11.0); Platelet Count 290 10^3/uL (130-400); RBC 5.13 10^6/uL (3.93-5.22); RDW 12.1 % (11.7-14.6); RDW-SD 41.5 fL; WBC 6.55 10^3/uL (4.4-10.8)
[2022-05-07 08:35] LABS: Anion Gap 7.3 mmol/L (3-11); BUN 22 mg/dL (7-18); CO2 29.7 mmol/L (21.0-32.0); CREATININE 0.9 mg/dL (0.55-1.02); Calcium 9.6 mg/dL (8.5-10.1); Chloride 100 mmol/L (98-107); Estimated GFR 67.92 (mL/min/1.73m2); Glucose 118 mg/dL (74-106); Sodium 137 mmol/L (136-145); TSH (W/Ref FT4) 1.84 uIU/mL (0.36-3.74)
== END 2022-05-07 04:54 | disposition home or self-care (01) ==
LOC: LBO 04:53
PROVIDERS: PCP Nurse Practitioner Family; Visit Provider Nurse Practitioner Family
DX: I10 Essential (primary) hypertension (principal); R53.83 Other fatigue
CPT/HCPCS: 36415; 80048; 85027; 84443

== ENCOUNTER 2022-10-03 01:22 | Outpatient (CLI) | payer MEDICARE, SELFPAY ==
[2022-10-06 09:48] LABS: Lyme Ab w Rflx to Lyme Confirm Negative (Negative)
[2022-10-06 19:53] LABS: Anaplasma phagocytophilum Negative (Negative); B. miyamotoi PCR Negative (Negative); Babesia divergens/MO-1 Negative (Negative); Babesia duncani Negative (Negative); Babesia microti Negative (Negative); Ehrlichia chaffeensis Negative (Negative); Ehrlichia ewingii/canis Negative (Negative); Ehrlichia muris eauclairensis Negative (Negative)
== END 2022-10-03 01:23 | disposition home or self-care (01) ==
LOC: LOS 01:22
PROVIDERS: PCP Nurse Practitioner Family; Visit Provider Nurse Practitioner Family
DX: L03.115 Cellulitis of right lower limb; L53.8 Other specified erythematous conditions; W57.XXXA Bitten or stung by nonvenomous insect and other nonvenomous arthropods, initial encounter
CPT/HCPCS: 36415; 87798; 86618

== ENCOUNTER 2023-12-19 11:10 | Outpatient (REF) | payer MEDICARE, SELFPAY ==
[2023-12-19 15:55] LABS: Hemoglobin A1C 5.5 % (<5.7)
[2023-12-19 16:07] LABS: ALT 41 U/L (14-59); AST 29 U/L (15-37); Albumin 4.1 g/dL (3.4-5.0); Alkaline Phosphatase 72 U/L (46-116); Anion Gap 9.7 mmol/L (3-11); BUN 18 mg/dL (7-18); Bilirubin, Total 1.19 mg/dL (0.2-1.0); CO2 29.3 mmol/L (21.0-32.0); CREATININE 0.8 mg/dL (0.55-1.02); Calcium 9.8 mg/dL (8.5-10.1); Calculated LDL 169 mg/dL (<100); Chloride 100 mmol/L (98-107); Cholesterol 258 mg/dL (<200); Estimated GFR 77.27 (mL/min/1.73m2); Glucose 98 mg/dL (74-106); HDL Cholesterol 59 mg/dL (40-60); Potassium 4.5 mmol/L (3.5-5.1); Sodium 139 mmol/L (136-145); Total Protein 7.8 g/dL (6.4-8.2); Triglyceride 151 mg/dL (<150)
== END 2023-12-19 11:11 | disposition home or self-care (01) ==
LOC: LBN 11:10
PROVIDERS: PCP Nurse Practitioner Family; Visit Provider Nurse Practitioner Family
DX: R73.9 Hyperglycemia, unspecified (principal); E78.5 Hyperlipidemia, unspecified
CPT/HCPCS: 80053; 80061; 83036

== ENCOUNTER 2024-05-31 02:13 | Outpatient (CLI) | payer MEDICARE, SELFPAY ==
--- NOTE | 2024-05-31 06:45 | DI.MAMMO_ITS ---
Exam(s) MAMMO SCREENING EXAM: MAMMO SCREENING CLINICAL HISTORY: screening,Z12.39 TECHNIQUE: Bilateral full field digital CC and MLO mammographic images were obtained with 3D tomosyn thesis and utilizing computer aided detection (CAD). COMPARISON: Available for comparison. FINDINGS: Masses/Architectural Distortion: The nodules in the upper outer quadrants of both breasts are stable. No new nodules are seen. No areas of architectural distortion are present. Microcalcifications: No suspicious pleomorphic-type are seen. Skin Thickening/Nipple Retraction: None. IMPRESSION: 1. No significant interval change with no specific features of malignancy noted. 2. Unless there is more urgent need, screening mammography is recommended, as per [employer] guidelines. BI-RADS Category 2 - Benign Findings Breast Density - Category B - Scattered areas of fibroglandular density Breast density category C or D implies that the patient has dense breast tissue. Dense breast tissue is very common and is not abnormal but dense breast tissue can make it harder to find cancer on a ma mmogram. Also, dense breast tissue may increase their breast cancer risk. This information about the result of the mammogram report was provided to the patient to raise their awareness. Use this report when you speak with the patient about their risks for breast cancer, which includes their family hist ory. At that time, you may recommend for more screening tests (Ultrasound or MRI) as they might be us eful based on their risk. A negative radiographic report should not delay biopsy if a dominant or clinically suspicious mass is present. Up to ten percent of cancers are not identified on mammography. A negative report may reinforce clinical impression. Adenosis and dense breasts may obscure an underlying neoplasm. False positive reports average 6 to 10%. Patient will receive a letter notifying them of these results.
== END 2024-05-31 02:33 ==
LOC: DI 02:13
PROVIDERS: PCP Nurse Practitioner Family; Visit Provider Nurse Practitioner Family
DX: Z12.31 Encounter for screening mammogram for malignant neoplasm of breast (principal); R92.323 Mammographic fibroglandular density, bilateral breasts; D24.2 Benign neoplasm of left breast; D24.1 Benign neoplasm of right breast
CPT/HCPCS: 77063; 77067

== ENCOUNTER 2024-07-29 01:01 | Outpatient (CLI) | payer MEDICARE, SELFPAY ==
[2024-07-29 10:22] LABS: Calculated LDL 125 mg/dL (<100); Cholesterol 203 mg/dL (<200); HDL Cholesterol 61 mg/dL (>or=50); Triglyceride 89 mg/dL (<150)
== END 2024-07-29 01:02 | disposition home or self-care (01) ==
LOC: LBO 01:01
PROVIDERS: PCP Nurse Practitioner Family; Visit Provider Nurse Practitioner Family
DX: E78.5 Hyperlipidemia, unspecified (principal)
CPT/HCPCS: 36415; 80061